=== PATIENT | female | born 1955 | race Asian ===

== ENCOUNTER → 2022-10-30 07:28 | Outpatient (CLI) | payer MEDICARE, OTHER, SELFPAY ==
[2022-10-30 08:31] LABS: Alanine Aminotransferase 28 IU/L (<35); Albumin 4.5 g/dL (3.5-5.0); Albumin Globulin Ratio 1.6 (1.0-2.8); Alkaline Phosphatase 67 U/L (38-126); Aspartate Aminotransferase 33 IU/L (14-36); Bilirubin Total 0.6 mg/dL (0.2-1.3); Blood Urea Nitrogen 16 mg/dL (7-17); Calcium 9.6 mg/dL (8.4-10.2); Carbon Dioxide 27 mmol/L (22-32); Chloride 106 mmol/L (98-107); Cholesterol 236 mg/dL (140-199); Estimated Glomerular Filt Rate > 60 mL/min (>60); Globulin 2.9 g/dL (1.7-4.1); Glucose 92 mg/dL (80-110); HDL Cholesterol 45 mg/dL (40-60); HEMOLYSIS < 15 (0-50); LDL Cholesterol Calculated 151 mg/dL (<100); Potassium 4.2 mmol/L (3.4-5.1); Sodium 141 mmol/L (137-145); Total Protein 7.4 g/dL (6.3-8.2); Triglycerides 202 mg/dL (35-150)
[2022-10-30 08:46] LABS: Free T4, Direct Thyroxine 1.12 ng/dL (0.78-2.19)
[2022-10-30 09:00] LABS: Thyroid Stimulating Hormone 2.94 uIU/mL (0.47-4.68)
== END ==
PROVIDERS: PCP Internal Medicine; Referring Provider Internal Medicine; Visit Provider Internal Medicine
DX: E03.9 Hypothyroidism, unspecified (principal); Z13.1 Encounter for screening for diabetes mellitus; Z13.220 Encounter for screening for lipoid disorders; Z13.6 Encounter for screening for cardiovascular disorders; Z79.899 Other long term (current) drug therapy
CPT/HCPCS: 36415; 80053; 80061; 84439; 84443

== ENCOUNTER → 2023-02-06 14:33 | Outpatient (CLI) | payer MEDICARE, OTHER, SELFPAY ==
[2023-02-06 17:36] LABS: Influenza A - CEPHEID Flu A NEGATIVE (NEGATIVE); Influenza B - CEPHEID Flu B NEGATIVE (NEGATIVE); Respiratory Syncytial Virus Negative (Negative)
[2023-02-06 17:43] LABS: COVID-19 CEPHEID 4-PLEX PCR Negative (Negative)
== END ==
PROVIDERS: PCP Internal Medicine; Visit Provider Physician Assistant
DX: R05.9 Cough, unspecified (principal); R09.81 Nasal congestion
CPT/HCPCS: 0241U

== ENCOUNTER 2023-04-05 09:00 | Day surgery (SDC) | payer MEDICARE, OTHER, SELFPAY ==
[2023-04-05 09:49] VITALS: BP 130/76; PULSE 65; RESP 16; TEMP 36.2; O2SAT 98
--- NOTE | 2023-04-05 10:16 | PM.HP.1 ---
History of Present Illness History of Present Illness Date Patient Seen: 04/05/23 Time Patient Seen: 10:16 Chief complaint: Screening Colonoscopy Narrative: Latisha is a 68-year-old woman who is here for colonoscopy. Her last one was over 10 years ago. She did not have polyps removed. No family history of colon cancer. [facility] Medical History Acquired hypothyroidism (~2021) Psoriasis Surgical History S/P tubal ligation Social History Smoking Status: Never smoker Meds Home Medications and Allergies Home Medications Medication Instructions Recorded Confirmed Type adalimumab 40 mg/0.8 mL 40 mg SUBCUT Q2W 11/10/22 02/06/23 History subcutaneous syringe kit (Humira) clobetasol 0.05 % topical cream 1 applic topical BID 11/10/22 02/06/23 History clobetasol 0.05 % topical ointment 1 applic topical BID 11/10/22 02/06/23 History levothyroxine 75 mcg tablet 75 mcg PO DAILY #90 tabs 11/10/22 04/05/23 Rx (Synthroid) benzonatate 200 mg capsule 200 mg PO TID #30 caps 02/06/23 02/06/23 Rx fluticasone propionate 50 1 spray intranasal DAILY #16 grams 02/06/23 02/06/23 Rx mcg/actuation nasal spray,suspension (Flonase Allergy Relief) guaifenesin 1,200 mg tablet, 1,200 mg PO BID #30 tabs 02/06/23 02/06/23 Rx extended release 12 hr sodium,potassium,mag sulfates 17.5 See Rx Instructions PO .COMPLEX 02/07/23 Rx gram-3.13 gram-1.6 gram oral soln #354 mL (Suprep Bowel Prep Kit) Allergies Allergy/AdvReac Type Severity Reaction Status Date / Time No Known Drug Allergies Allergy Verified 04/05/23 09:48 Exam Vital Signs (past 8 hours): - 04/05/23 09:49 Temperature 97.1 F L Pulse Rate 65 Respiratory Rate 16 Blood Pressure 130/76 Pulse Oximetry 98 Oxygen Delivery Method Room Air Oxygen Delivery Method Room Air Const General: healthy appearing Resp Effort & Inspection: normal respiratory effort Assessment & Plan Assessment and plan (1) Colon cancer screening: Status: Acute Plan We reviewed the risks and benefits of colonoscopy for colon cancer screening and she would like to proceed.
--- NOTE | 2023-04-05 10:47 | PM.OP.COLON ---
Operative Date/Time/Diagnoses Date of procedure: 04/05/23 Time of procedure: 10:47 Pre-op diagnosis: Colon cancer screening Post-op diagnosis: same Procedure & Clinicians Study performed: Colonoscopy Same procedure as scheduled: Yes Surgeon: Daniel Warren Procedure Notes Procedure in detail: Surgeon: Daniel Wraren MD Anesthesia: Radha Jacinto CRNA Procedure: The patient was brought to the endoscopy suite, placed in left lateral decubitus position. The patient was connected to monitoring devices. A time-out was performed. Sedation was administered. Once the patient was adequately sedated, a digital rectal exam was performed and was normal. The scope was then inserted and advanced to the cecum where the appendiceal orifice was identified and photographed. The scope was then slowly withdrawn over greater than 6 minutes. The mucosa was thoroughly inspected. No abnormalities were found. The scope was retroflexed in the rectum. Internal hemorrhoids were noted. The scope was straightened and removed. The patient was awakened and brought to recovery. Scope withdrawal time: 8 minutes Sedation time: 18 minutes EBL: 0 Findings: Normal colon Post-procedure Recommendations: Colonoscopy in 10 years Disposition: PACU
[2023-04-05 10:48] VITALS: BP 87/43; PULSE 65; RESP 18; TEMP 36.2; O2SAT 98
[2023-04-05 10:53] VITALS: BP 96/42; PULSE 61; RESP 16; O2SAT 98
[2023-04-05 10:58] VITALS: BP 92/40; PULSE 68; RESP 12; TEMP 36.3; O2SAT 99
[2023-04-05 11:06] VITALS: BP 107/41; PULSE 83; RESP 16; O2SAT 99
== END 2023-04-05 11:20 | disposition home or self-care (01) ==
PROVIDERS: PCP Internal Medicine; Referring Provider Surgery; Visit Provider Surgery
PROC: 0DJD8ZZ Inspection of Lower Intestinal Tract, Via Natural or Artificial Opening Endoscopic (ICD-10-PCS; CPT 45378; principal; 2023-04-05 10:15)
DX: Z12.11 Encounter for screening for malignant neoplasm of colon (principal); K64.8 Other hemorrhoids
CPT/HCPCS: G0121; J2704

== ENCOUNTER → 2023-11-07 07:14 | Outpatient (CLI) | payer MEDICARE, OTHER, SELFPAY ==
[2023-11-07 08:28] LABS: Alanine Aminotransferase 23 IU/L (<35); Albumin 4.6 g/dL (3.5-5.0); Albumin Globulin Ratio 1.6 (1.0-2.8); Alkaline Phosphatase 81 U/L (38-126); Aspartate Aminotransferase 33 IU/L (14-36); BUN Creatinine Ratio 19.2 (6-22); Bilirubin Total 0.5 mg/dL (0.2-1.3); Blood Urea Nitrogen 15 mg/dL (7-17); Calcium 9.6 mg/dL (8.4-10.2); Carbon Dioxide 25 mmol/L (22-32); Chloride 108 mmol/L (98-107); Cholesterol 232 mg/dL (140-199); Estimated Glomerular Filt Rate > 60 mL/min (>60); Globulin 2.9 g/dL (1.7-4.1); Glucose 105 mg/dL (80-110); HDL Cholesterol 41 mg/dL (40-60); HEMOLYSIS < 15 (0-50); LDL Cholesterol Calculated 135 mg/dL (<100); Potassium 4.9 mmol/L (3.4-5.1); Sodium 140 mmol/L (137-145); Total Protein 7.5 g/dL (6.3-8.2); Triglycerides 278 mg/dL (35-150)
[2023-11-07 08:41] LABS: Free T4, Direct Thyroxine 1.15 ng/dL (0.78-2.19)
[2023-11-07 08:55] LABS: Thyroid Stimulating Hormone 1.77 uIU/mL (0.47-4.68)
== END ==
PROVIDERS: PCP Internal Medicine; Referring Provider Internal Medicine; Visit Provider Internal Medicine
DX: Z13.6 Encounter for screening for cardiovascular disorders (principal); E03.9 Hypothyroidism, unspecified; L40.9 Psoriasis, unspecified; E78.5 Hyperlipidemia, unspecified
CPT/HCPCS: 36415; 80053; 80061; 84439; 84443

== ENCOUNTER → 2024-11-13 08:07 | Outpatient (CLI) | payer MEDICARE, OTHER, SELFPAY ==
[2024-11-13 09:16] LABS: Alanine Aminotransferase 41 IU/L (<35); Albumin 4.6 g/dL (3.5-5.0); Albumin Globulin Ratio 1.4 (1.0-2.8); Alkaline Phosphatase 74 U/L (38-126); Blood Urea Nitrogen 17 mg/dL (7-17); Calcium 9.9 mg/dL (8.4-10.2); Carbon Dioxide 28 mmol/L (22-32); Chloride 107 mmol/L (98-107); Estimated Glomerular Filt Rate > 60 mL/min (>60); Globulin 3.2 g/dL (1.7-4.1); Glucose 98 mg/dL (70-99); HEMOLYSIS < 15 (0-50); Sodium 140 mmol/L (137-145); Total Protein 7.8 g/dL (6.3-8.2)
[2024-11-13 09:50] LABS: Potassium 5.1 mmol/L (3.4-5.1)
[2024-11-13 09:55] LABS: Free T3, Triiodothyronine Free 4.15 pg/mL (2.77-5.27); Free T4, Direct Thyroxine 1.50 ng/dL (0.78-2.19)
[2024-11-13 10:08] LABS: Thyroid Stimulating Hormone 2.31 uIU/mL (0.47-4.68)
== END ==
PROVIDERS: PCP Internal Medicine; Referring Provider Internal Medicine; Visit Provider Internal Medicine
DX: E03.9 Hypothyroidism, unspecified (principal)
CPT/HCPCS: 36415; 80053; 84439; 84443; 84481